=== PATIENT | female | born 1945 | race Caucasian/White ===

== ENCOUNTER → 2018-03-22 | Outpatient (CLI) | payer OTHER, BC ==
[~2018-03-22] MED LIST: AFLURIA 2045 MCG/0.4; ALDACTONE25 MG PO; ASPIR 8181 MG PO; ATENOLOL 100MG100 MG PO; ATENOLOL 50 MG50 M1; CARDIZEM CD180 MG PO; DEMADEX20 MG PO; KEPPRA 500 MG500 M1; KEPPRA 500 MG500 M1 PO; LASIX 40 MG TAB40 M1 PO; LEVOTHYROXIN0.112 M1 PO; LIVALO1 MG PO; MECLIZINE HCL25 M1 PO; MEDROL DOSPAK21 TA1 PO; NAMENDA 10 MG T10 MG; NAMENDA 5 MG TAB5 M1 PO; NEXIUM40 MG; NEXIUM40 MG PO; OXYBUTYNIN; OXYBUTYNIN 5 MG5 M1 PO; PACERONE 200 M200 MG PO; PLAVIX 75 MG TA75 M1 PO; PNEUMOVAX25 MCG/0.5; POTASSIUM20 PO; PRADAXA150 MG PO; REQUIP; REQUIP 1 MG TABL1 M1 PO; TENORMIN50 MG PO; ZOLOFT50 MG PO
== END ==
LOC: ULTRA 12:05
DX: M79.89 Other specified soft tissue disorders (principal); M79.605 Pain in left leg; R60.0 Localized edema

== ENCOUNTER → 2018-05-14 | Outpatient (CLI) | payer OTHER, BC | LOC: RAD 14:19 | DX: J98.11 Atelectasis (principal); M25.562 Pain in left knee ==

== ENCOUNTER → 2018-09-27 | Outpatient (CLI) | payer OTHER, BC ==
[~2018-09-27] MED LIST changes: +CARDIZEM CD 18180 M3 PO; +COZAAR 25 MG TA25 M1 PO; +COZAAR 25 MG TA25 M2 PO; +DICLO GEL1 EACH TRANSDERM; +FEOSOL325 M1 PO; +HUMALOG100 UNIT/1 SUBQ; +LANTUS100 UNIT/M SUBQ; +TENORMIN25 MG PO; +TYLENOL EXTRA500 MG PO; +VIMPAT100 MG PO; +ZOCOR40 MG PO
[2018-09-27 09:31] LABS: HEMATOCRIT 25.9 % (37.0-47.0); HEMOGLOBIN 8.2 gm/dL (12.0-15.0); MCH 23.4 pg (26.0-34.0); MCHC 31.7 g/dL (28.0-37.0); MCV 73.7 fL (80.0-100.0); RBC 3.51 mil/uL (4.20-5.00); RDW 18.8 % (10.5-14.5); WBC 5.8 thou/uL (4.0-11.0)
[2018-09-27 09:44] LABS: CALCIUM 8.8 mg/dL (8.5-10.1); CREATININE 0.9 mg/dL (0.6-1.0); POTASSIUM 3.6 mmol/L (3.5-5.1)
--- NOTE | 2018-09-27 12:36 | EKG ---
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 : 1945 Requested By: Chester Leon Order Number: [id number] MD: Jacky Torrez Measurements Intervals [place] Rate: 112 P: [place]: QRS: -35 QRSD: 113 T: 44 QT: 384 QTc: 525 Interpretive Statements Atrial fibrillation Borderline IVCD with LAD Low voltage, extremity leads Abnormal R-wave progression, late transition Prolonged QT interval No previous ECGs available for comparison Electronically Signed On 09-27-2018 12:36:22 CDT by Jacky Torrez [email or web address] ��������������������������������������������� <ELECTRONICALLY SIGNED> ���������������������������������������� By: Jacky Torrez MD, [facility] ��������������������������������������������� 09/27/18 1236 Jacky Torrez MD, [facility] /EPI
--- NOTE | 2018-09-28 18:07 | PATH ---
[facility] [address] [place] [address] PATHOLOGY RPT PROCEDURE Name: MARGOT RUIZ Room #: REG [facility] M..#: [id number] ������������������ Admission: 09/27/18 ������������������ Date of : 43 Discharge: Report #: [id number] Path Case #: [id number] [facility] Accession Number: [id number] . 01 Material submitted: . PART A: stomach - BX OF GASTRIC ULCER PART B: colon - POLYP AT TRANSVERSE COLON. Modifiers: transverse PART C: cecum - POLYP AT CECUM X2 PART D: colon - POLYP AT ASCENDING COLON. Modifiers: ascending . 01 Clinical history: . Anemia . 02 Diagnosis: A. Gastric mucosa, gastric ulcer, endoscopic biopsy: - Mild reactive gastropathy. - Negative for intestinal metaplasia or atrophy. - Negative for Helicobacter pylori (properly controlled immunohistochemical stain performed). . B. Polyp, transverse colon, endoscopic biopsy: - Tubular adenoma. - Negative for high-grade dysplasia. . C. Polyp x2, cecum, endoscopic biopsy: - All fragments showing tubular adenoma. - Negative for high-grade dysplasia within any of the fragments. . D. Polyp, at ascending colon, endoscopic biopsy: - Tubular adenoma. - Negative for high-grade dysplasia. (IUV:alison; 09/28/2018) QMS/09/28/2018 . 02 Electronically signed: . Luna Pruitt MD, Pathologist NPI- [id number] . 01 Gross description: . A. Received in formalin labeled "Margot Ruiz, BX of gastric ulcer," are 5 segments of martel soft tissue measuring 1.5 x 0.8 x 0.2 cm in aggregate dimensions and ranging from 0.3 to 0.6 cm in maximum dimension. The specimen is submitted entirely in cassette A1. . B. Received in formalin labeled "Margot Ruiz, polyp at transverse colon," is a single segment of martel soft tissue measuring 0.3 cm in maximum dimension. The specimen is entirely submitted in [place] [address] PATHOLOGY RPT PROCEDURE Name: MARGOT RUIZ Room #: REG Jensen Ortez.#: [id number] ������������������ Admission: 09/27/18 ������������������ Date of : 43 Discharge: Report #: [id number] Path Case #: [id number] . C. Received in formalin labeled "Margot Ruiz, polyp at cecum," and additionally labeled on the requisition as "x2," is a 0.8 x 0.4 x 0.4 cm polypoid piece of martel soft tissue. The margin is inked and the tissue is sectioned perpendicular to the margin and submitted entirely in cassette C1. Additionally received in the same container are 3 segments of martel soft tissue measuring 0.8 x 0.7 x 0.2 cm in aggregate dimensions and ranging from 0.2 to 0.3 cm in maximum dimensions. The specimen is submitted entirely in cassette C2. . D. Received in formalin labeled "Joseph Margot, polyp at ascending colon," is a single segment of martel soft tissue measuring 0.6 cm in maximum dimension. The specimen is entirely submitted in cassette D1. (TSD; 09/27/2018) TOB/TOB . 02 Pathologist provided ICD-10: K31.9, D12.3, D12.0, D12.2 . 02 CPT . 772819, 139496, 788711, 068057, R71655 Specimen Comment: A courtesy copy of this report has been sent to Specimen Comment: [phone], . Specimen Comment: Report sent to / DR REYES Performed at: [address], [place], [place] [id number] MD Andrew Gomes MD Phone: [phone] Performed at: [address] [id number] MD Luna Pruitt MD Phone: [phone]
== END | disposition home or self-care (01) ==
LOC: GI 07:33
PROVIDERS: Specialist
DX: D12.0 Benign neoplasm of cecum (principal); D12.2 Benign neoplasm of ascending colon; D12.3 Benign neoplasm of transverse colon; K57.30 Diverticulosis of large intestine without perforation or abscess without bleeding; K31.9 Disease of stomach and duodenum, unspecified; K44.9 Diaphragmatic hernia without obstruction or gangrene; K25.9 Gastric ulcer, unspecified as acute or chronic, without hemorrhage or perforation; K21.0 Gastro-esophageal reflux disease with esophagitis; I10 Essential (primary) hypertension; I25.2 Old myocardial infarction; I48.91 Unspecified atrial fibrillation; E03.9 Hypothyroidism, unspecified; M19.90 Unspecified osteoarthritis, unspecified site; Z87.01 Personal history of pneumonia (recurrent); Z86.73 Personal history of transient ischemic attack (TIA), and cerebral infarction without residual deficits; Z98.890 Other specified postprocedural states; Z88.0 Allergy status to penicillin; Z88.2 Allergy status to sulfonamides; Z88.8 Allergy status to other drugs, medicaments and biological substances; Z79.01 Long term (current) use of anticoagulants; Z79.899 Other long term (current) drug therapy
CPT/HCPCS: 62110; 62900

== ENCOUNTER 2018-10-13 16:24 | Emergency (ER) | payer OTHER, BC ==
[~2018-10-13] VITALS: Ht 157.5 cm; Wt 99.8 kg
[~2018-10-13 16:24] MED LIST changes: -CARDIZEM CD 18180 M3 PO; -COZAAR 25 MG TA25 M1 PO; -COZAAR 25 MG TA25 M2 PO; -DICLO GEL1 EACH TRANSDERM; -FEOSOL325 M1 PO; -HUMALOG100 UNIT/1 SUBQ; -LANTUS100 UNIT/M SUBQ; -TENORMIN25 MG PO; -TYLENOL EXTRA500 MG PO; -VIMPAT100 MG PO; -ZOCOR40 MG PO
[2018-10-13 16:58] LABS: HEMATOCRIT 34.3 % (37.0-47.0); HEMOGLOBIN 10.5 gm/dL (12.0-15.0); MCH 25.5 pg (26.0-34.0); MCHC 30.6 g/dL (28.0-37.0); MCV 83.5 fL (80.0-100.0); PLATELET COUNT 202 thou/uL (150-400); RBC 4.11 mil/uL (4.20-5.00); RDW 29.8 % (10.5-14.5); WBC 6.4 thou/uL (4.0-11.0)
[2018-10-13 17:03] LABS: ANION GAP 10 mmol/L (7-16); BUN 25 mg/dL (7-18); CALCIUM 8.9 mg/dL (8.5-10.1); CHLORIDE 106 mmol/L (98-107); CO2 27 mmol/L (21-32); GLUCOSE 127 mg/dL (74-106); POTASSIUM 3.9 mmol/L (3.5-5.1); SODIUM 143 mmol/L (136-145)
[2018-10-13 17:13] LABS: ALBUMIN 3.4 g/dL (3.4-5.0); SGOT 21 U/L (15-37); SGPT 29 U/L (30-65); TOTAL BILIRUBIN 0.4 mg/dL (<0.1-1.0); TOTAL PROTEIN 6.6 g/dL (6.4-8.2); TROPONIN-I <0.06 ng/mL (<0.06)
[2018-10-13] MEDS ORDERED: TENORMIN25 MG PO (17:27)
[2018-10-13] MEDS ORDERED: COZAAR 25 MG TA25 M2 PO (17:28)
[2018-10-13 17:29] LABS: ABSOLUTE NEUTROPHILS 5.2 thou/uL (1.4-8.2); ANISOCYTOSIS 1+
[2018-10-13] MEDS ORDERED: ZOCOR40 MG PO (17:29)
[2018-10-13] MEDS ORDERED: VIMPAT100 MG PO (17:29)
[2018-10-13] MEDS ORDERED: HUMALOG100 UNIT/1 SUBQ (17:33)
[2018-10-13] MEDS ORDERED: LANTUS100 UNIT/M SUBQ (17:33)
[2018-10-13] MEDS ORDERED: TYLENOL EXTRA500 MG PO (17:35)
[2018-10-13 18:24] VITALS: BP 129/65
--- NOTE | 2018-10-13 23:34 | EKG ---
[place] [address] [address] 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1945 Requested By: Marge Melendez Order Number: [id number] MD: Asif Millard Measurements Intervals [place] Rate: 79 P: [place]: QRS: -39 QRSD: 121 T: 11 QT: 400 QTc: 459 Interpretive Statements Atrial flutter Nonspecific IVCD with LAD Compared to ECG 09/27/2018 08:34:37 Atrial fibrillation no longer present Prolonged QT interval no longer present Electronically Signed On 10-13-2018 23:34:05 CDT by Asif Millard [email or web address] ��������������������������������������������� <ELECTRONICALLY SIGNED> ���������������������������������������� By: Asif Millard MD ��������������������������������������������� 10/13/18 2334 29 29 Asif Millard MD /AMIRA
[2018-10-14] MEDS ORDERED: DEMADEX20 MG PO ×2 (12:57→12:58)
[2018-10-14] MEDS ORDERED: FEOSOL325 M1 PO (13:00)
== END 2018-10-13 18:24 | disposition left against medical advice (07) ==
LOC: ER 16:24
PROVIDERS: Physician Assistant
DX: I11.0 Hypertensive heart disease with heart failure (principal); I50.9 Heart failure, unspecified; D64.9 Anemia, unspecified; I48.91 Unspecified atrial fibrillation; M81.0 Age-related osteoporosis without current pathological fracture; E78.5 Hyperlipidemia, unspecified; E03.9 Hypothyroidism, unspecified; M19.90 Unspecified osteoarthritis, unspecified site; K21.9 Gastro-esophageal reflux disease without esophagitis; G25.81 Restless legs syndrome; Z86.73 Personal history of transient ischemic attack (TIA), and cerebral infarction without residual deficits; Z90.89 Acquired absence of other organs

== ENCOUNTER 2018-10-14 11:06 | Inpatient (IN) | payer OTHER, BC ==
[~2018-10-14] VITALS: Ht 157.5 cm; Wt 114.6 kg
[~2018-10-14 11:06] MED LIST changes: +COZAAR 25 MG TA25 M2 PO; +HUMALOG100 UNIT/1 SUBQ; +LANTUS100 UNIT/M SUBQ; +TENORMIN25 MG PO; +TYLENOL EXTRA500 MG PO; +VIMPAT100 MG PO; +ZOCOR40 MG PO
[2018-10-14] MEDS ORDERED: DEMADEX20 MG PO ×2 (12:57→12:58)
[2018-10-14] MEDS ORDERED: FEOSOL325 M1 PO (13:00)
[2018-10-14 13:01] VITALS: BP 110/53
[2018-10-14 13:05] LABS: ABSOLUTE NEUTROPHILS 4.5 thou/uL (1.4-8.2); BASOPHILS 0.6 % (0.0-2.0); EOSINOPHILS 2.7 % (0.0-3.0); HEMATOCRIT 35.7 % (37.0-47.0); HEMOGLOBIN 10.9 gm/dL (12.0-15.0); LYMPHOCYTES 10.2 % (24.0-44.0); MCH 25.6 pg (26.0-34.0); MCHC 30.5 g/dL (28.0-37.0); MCV 83.8 fL (80.0-100.0); PLATELET COUNT 214 thou/uL (150-400); POLYS 79.5 % (36.0-66.0); RBC 4.26 mil/uL (4.20-5.00); WBC 5.6 thou/uL (4.0-11.0)
[2018-10-14 13:12] LABS: CALCIUM 8.9 mg/dL (8.5-10.1); CREATININE 1.2 mg/dL (0.6-1.0); POTASSIUM 4.1 mmol/L (3.5-5.1)
[2018-10-14 14:15] LABS: ANISOCYTOSIS 2+; POLYCHROMASIA OCCASIONAL
[2018-10-14 14:17] LABS: HYPOCHROMASIA 1+
--- NOTE | 2018-10-14 14:34 | 2DMMODE ---
[facility] [address] [place] [address] 2 D/M-MODE ECHOCARDIOGRAM Name: TOSHIAMARGOT MCKEON Room #: 211-P ADM IN M.R.#: [id number] ������������� Admission: 10/14/18 ������������� Attend Phys: Deandre Hirsch, Discharge: ��� ������������� ��� Date of : 43 Date of Service: 10/14/18 1433 �� Report #: [id number] �������� ��������������������������������������������[id number] THIS REPORT FOR: //name// APPROVED REPORT Study performed: 10/14/2018 12:56:33 EXAM: Comprehensive 2D, Doppler, and color-flow Echocardiogram Patient Location: Bedside Room #: 211 Status: routine BSA: 1.95 HR: 56 bpm BP: 129/65 mmHg Rhythm: Atrial Fibrillation Other Information Study Quality: Adequate Indications Congestive Heart Failure Diabetes Dyspnea Cardiomyopathy Hypertension/HDD 2D Dimensions IVC: 24.00 mm Tricuspid Valve TR Peak Manny.: 2.93 m/s TR Peak Gr.: 34.33 mmHg PA Pressure: 45.00 mmHg Left Ventricle The left ventricle is normal size. There is global hypokinesis of the left ventricle. There is normal left ventricular wall thickness. Left ventricular systolic function is mildly decreased. LVEF is 40-45%. This study is not technically sufficient to allow evaluation of the LV diastolic function due to atrial fibrillation. Right Ventricle The right ventricle is normal size. The right ventricular systolic function is normal. [facility] [address] [address] 2 D/M-MODE ECHOCARDIOGRAM Name: MARGOT POPE Room #: 211-P ADM IN M.R.#: [id number] ������������� Admission: 10/14/18 ������������� Attend Phys: Deandre Hirsch, Discharge: ��� ������������� ��� Date of : 43 Date of Service: 10/14/18 1433 �� Report #: [id number] �������� ��������������������������������������������[id number] Atria Left atrium is dilated. Right atrium is dilated. Aortic Valve The aortic valve is normal in structure. Mild aortic regurgitation. Mitral Valve The mitral valve is normal in structure. Mild to moderate mitral regurgitation. Tricuspid Valve The tricuspid valve is normal in structure. There is mild to moderate tricuspid regurgitation. Estimated PAP 45 mmHg. There is moderate pulmonary hypertension. Pulmonic Valve The pulmonary valve is normal in structure. Great Vessels The aortic root is normal in size. IVC is dilated and collapses <50% with inspiration. Pericardium Trace pericardial effusion. <Conclusion> The left ventricle is normal size. There is global hypokinesis of the left ventricle. LVEF is 40-45%. This study is not technically sufficient to allow evaluation of the LV diastolic function due to atrial fibrillation. The right ventricle is normal size. Left atrium is dilated. Right atrium is dilated. Mild aortic regurgitation. Mild to moderate mitral regurgitation. There is mild to moderate tricuspid regurgitation. Estimated PAP 45 mmHg. There is moderate pulmonary hypertension. Trace pericardial effusion. ��������������������������������������������� <ELECTRONICALLY SIGNED> ���������������������������������������� By: Deandre Hirsch MD, FAC ��������������������������������������������� 10/14/18 1433 1433 1433 Deandre Hirsch MD, FAC /INF
[2018-10-14 15:42] VITALS: BP 115/37
--- NOTE | 2018-10-14 16:58 | NUR ---
PT DIRECT ADMIT FROM DOCTORS OFFICE. PT ORIENTED TO ROOM AND BEDSPACE - ASSESSMENT CHARTED - MEDS PER MAY - IV STARTED IN [facility]. PT UP WITH ASSITANCE TO BATHROOM - PT IS FALL RISK. FALL RISK PRECAUTIONS IN PLACE. KELSEY DIET AND FLUIDS. CO'S OF PAIN IN LEFT RIB AREA DUE TO COUGHING. NO CO'S AT THE PRESENT TIME.
[2018-10-15] VITALS (7 sets, daily range): BP systolic 123–140; BP diastolic 46–76
[2018-10-15] MEDS ORDERED: COZAAR 25 MG TA25 M1 PO ×2 (04:58→05:19)
[2018-10-15] MEDS ORDERED: DICLO GEL1 EACH TRANSDERM (05:22)
[2018-10-15] MEDS ORDERED: CARDIZEM CD 18180 M3 PO (05:28)
--- NOTE | 2018-10-15 05:51 | NUR ---
RECEIVED PT'S CARE AT 1929; PT. SITTING AT THE BED SIDE OF THE BED; AXO4; DURING ASSESSMENT C/O PAIN OVER L. SIDE; ST. "I DO NOT WANT TO TAKE ANYTHING FOR PAIN"; REQUESTED HOME HS MEDICATION; PHYSICIAN NOTIFIED; ORDERS RECEIVED; ST. WANTS TO TAKE HOME MEDICATIONS WHILE IN THE HOSPITAL; EXPLAINED SOMETIMES MEDICATION MIGHT BE HOLD; REQUEST EXPLANATION FROM DR. CASTRO THE REASON TO HOLD MEDICATION; INFORM WILL PASS ON REPORT & MIGHT ASK TO DR. CASTRO ON THE MORNING; ST. UNDERSTANDING; HOME MEDICATION LIST UPDATE; COPY ON CHART; ASK THE REASON BEHIND ANTIBIOTICS HAVE NOT BEING STARTED; PER REPORT DR. DOYLE AWARE; INFORM DR. DOYLE AWARE OF IT; ST. UNDERSTANDING; ABLE TO REST THROUGH THE NIGHT WITH EYES CLOSE; CALLED APROPIATELY; ASSESSMENT CHARGED; FOLLOWING POC; MONITORING; WILL PASS ON REPORT.
[2018-10-15 08:09] LABS: CALCIUM 9.1 mg/dL (8.5-10.1); POTASSIUM 3.5 mmol/L (3.5-5.1)
--- NOTE | 2018-10-15 09:23 | EKG ---
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1945 Requested By: Deandre Hirsch Order Number: [id number] MD: Jacky Torrez Measurements Intervals [place] Rate: 74 P: [place]: QRS: -18 QRSD: 129 T: 11 QT: 453 QTc: 503 Interpretive Statements Atrial fibrillation IVCD, consider atypical LBBB Compared to ECG 10/13/2018 16:30:32 No significant change was found Electronically Signed On 10-15-2018 9:23:28 CDT by Jacky Torrez [email or web address] ��������������������������������������������� <ELECTRONICALLY SIGNED> ���������������������������������������� By: Jacky Torrez MD, [facility] ��������������������������������������������� 10/15/18 0923 Jacky Torrez MD, [facility] /EPI
--- NOTE | 2018-10-15 12:03 | NUR ---
Nutrition: Pt assessed d/t moderate risk per RD screening per BMI >40 (46.2 at present). Nutrition education provided in detail as pt here w/ CHF too. Hx: chronic CHF, HTN, DM (on insulin). Reports being on vacation w/ spouse the last few weeks; eating out for every meal. Pt now understands how quickly CHF symptoms can be exacerbated "by going off diet." States she learned her lesson. Shared tips to keep weight/fluid retention down, reviewed low sodium food choices, dining out tips, and encouraged more eating in/home cooked meals. BGs staying well controlled, 91-113 mg/dl per 10/14, 119 mg/dl today. Likely to d/c home tomorrow per chart. Low nutrition risk.
--- NOTE | 2018-10-15 17:08 | NUR ---
ASSESSMENT CHARTED - MEDS PER MAR - PT WITH NO CO'S OF PAIN OR NASUEA. KELSEY DIET AND FLUIDS. NO COVERAGE REQUIRED FOR ACCUCHEECKS THIS SHIFT - AMBULATING WITH STBY ASSIST TO THE BATHROOM. PT WITH CTA - PE PROTOCOL COMPLETED THIS AFTERNOON. IV 20 GAUGE STARTED X 1 [address] [facility] FOR [address]. UP TO VISIT THIS AM. NO CO'S AT THE PRESENT TIME.
--- NOTE | 2018-10-16 04:04 | NUR ---
RECEIVED PT'S CARE AROUND 1929; PT. SITTING ON THE BED SIDE; AOX4; RELATIVE AT THE BED SIDE; DURING ASSESSMENT PT. C/O PAIN OVER L. SIDE FLANK; 05/02; INTERMITTENT; ST. ABLE TO TOLERATE PAIN; NOTIFIED ABOUT HS MEDICATION & DOSAGES; ST. UNDERSTANDING; HS MEDICATION GIVEN; AT 2129 NEW IV ANTIBIOTIC ON EMAR; MEDICATION GIVEN; PT. COUGHING; STRONG EFFORT; C/O SOB & FLUSHING OVER FACE OVER A BRIEF PERIOD DUE TO COUGHING; ASSISSTED & EDUCATED ABOUT TAKING DEEP BREATH & SHAPPING LIPS BLOWING THROUGH A STROW; BREATHING IMPROVED; O2 SAT 98% ON RA; PER ORDER H1B1/RVP CULTURE TAKEN; SENT TO LAB; ABLE TO REST AFTER MIDNIGHT WITH EYES CLOSED; ASSESSMENT CHARGED; FOLLOWING POC; MONITORING; WILL PASS ON REPORT;
[2018-10-16 05:25] VITALS: BP 149/78
[2018-10-16 05:32] LABS: CALCIUM 9.1 mg/dL (8.5-10.1); POTASSIUM 3.9 mmol/L (3.5-5.1)
[2018-10-16 07:05] VITALS: BP 137/81
--- NOTE | 2018-10-16 08:54 | NUR ---
ASSUMED CARE OF PT APPROX 0715, A&0X4, AMB SLOW AND STEADY, SEE INDIVIDUAL INTERVENTIONS FOR ASSESSMENTS, ENCOURAGED TO USE CALL LIGHT FOR ANY NEEDS
[2018-10-16 10:58] VITALS: BP 137/81
== END 2018-10-16 11:55 | disposition home or self-care (01) | DRG 291 ==
LOC: 2N 11:06
PROVIDERS: Nurse Practitioner Adult Health; ADMIT Internal Medicine Cardiovascular Disease
DX: I11.0 Hypertensive heart disease with heart failure (principal); J18.9 Pneumonia, unspecified organism; I50.23 Acute on chronic systolic (congestive) heart failure; I42.9 Cardiomyopathy, unspecified; I48.2 Chronic atrial fibrillation; E78.5 Hyperlipidemia, unspecified; D64.9 Anemia, unspecified; E11.9 Type 2 diabetes mellitus without complications; I08.3 Combined rheumatic disorders of mitral, aortic and tricuspid valves; I27.20 Pulmonary hypertension, unspecified; E03.9 Hypothyroidism, unspecified; Z88.8 Allergy status to other drugs, medicaments and biological substances; Z88.0 Allergy status to penicillin; Z88.2 Allergy status to sulfonamides; Z91.19 Patient's noncompliance with other medical treatment and regimen
CPT/HCPCS: 10081

== ENCOUNTER → 2018-12-27 | Outpatient (CLI) | payer OTHER, BC ==
[~2018-12-27] MED LIST changes: +CARDIZEM CD 18180 M3 PO; +COZAAR 25 MG TA25 M1 PO; +DICLO GEL1 EACH TRANSDERM; +FEOSOL325 M1 PO; +OMEPRAZOLE40 MG PO
== END | disposition home or self-care (01) ==
LOC: GI 08:09
DX: K25.9 Gastric ulcer, unspecified as acute or chronic, without hemorrhage or perforation (principal); K31.89 Other diseases of stomach and duodenum; K44.9 Diaphragmatic hernia without obstruction or gangrene; I11.0 Hypertensive heart disease with heart failure; I50.9 Heart failure, unspecified; E78.00 Pure hypercholesterolemia, unspecified; I25.10 Atherosclerotic heart disease of native coronary artery without angina pectoris; E11.9 Type 2 diabetes mellitus without complications; E03.9 Hypothyroidism, unspecified; D64.9 Anemia, unspecified; I48.91 Unspecified atrial fibrillation; I48.92 Unspecified atrial flutter; Z87.19 Personal history of other diseases of the digestive system; Z98.41 Cataract extraction status, right eye; Z86.010 Personal history of colon polyps; Z79.01 Long term (current) use of anticoagulants; Z98.42 Cataract extraction status, left eye; Z79.899 Other long term (current) drug therapy; Z88.2 Allergy status to sulfonamides; Z88.0 Allergy status to penicillin
CPT/HCPCS: 62110; 62900

== ENCOUNTER → 2019-04-22 | Outpatient (CLI) | payer OTHER, BC | LOC: SJCVCIMAG 10:22 → RAD 12:49 | DX: I48.21 Permanent atrial fibrillation (principal); I10 Essential (primary) hypertension; I25.10 Atherosclerotic heart disease of native coronary artery without angina pectoris; I25.5 Ischemic cardiomyopathy; E78.5 Hyperlipidemia, unspecified; M19.90 Unspecified osteoarthritis, unspecified site; Z90.09 Acquired absence of other part of head and neck; Z87.891 Personal history of nicotine dependence; Z79.84 Long term (current) use of oral hypoglycemic drugs; Z79.4 Long term (current) use of insulin ==

== ENCOUNTER → 2019-05-13 | Outpatient (CLI) | payer OTHER, BC | LOC: SJCVC 12:57 | DX: E11.9 Type 2 diabetes mellitus without complications (principal); I87.2 Venous insufficiency (chronic) (peripheral); G40.909 Epilepsy, unspecified, not intractable, without status epilepticus; K21.9 Gastro-esophageal reflux disease without esophagitis; I48.21 Permanent atrial fibrillation; I25.10 Atherosclerotic heart disease of native coronary artery without angina pectoris; M19.90 Unspecified osteoarthritis, unspecified site; I25.5 Ischemic cardiomyopathy; D68.59 Other primary thrombophilia; E78.00 Pure hypercholesterolemia, unspecified; Z79.4 Long term (current) use of insulin; Z86.73 Personal history of transient ischemic attack (TIA), and cerebral infarction without residual deficits; Z79.899 Other long term (current) drug therapy ==

== ENCOUNTER → 2019-06-01 | Outpatient (CLI) | payer OTHER, BC | LOC: SJCVC 11:06 | DX: I48.21 Permanent atrial fibrillation (principal); R94.31 Abnormal electrocardiogram [ECG] [EKG]; I25.5 Ischemic cardiomyopathy; I11.0 Hypertensive heart disease with heart failure; I50.23 Acute on chronic systolic (congestive) heart failure; I34.0 Nonrheumatic mitral (valve) insufficiency; I25.10 Atherosclerotic heart disease of native coronary artery without angina pectoris; E11.9 Type 2 diabetes mellitus without complications; Z79.4 Long term (current) use of insulin; Z79.82 Long term (current) use of aspirin; Z79.899 Other long term (current) drug therapy ==

== ENCOUNTER 2019-07-17 14:30 | Emergency (ER) | payer OTHER, BC ==
[~2019-07-17] VITALS: Ht 157.5 cm; Wt 106.6 kg
[~2019-07-17 14:30] MED LIST changes: +CARDIZEM CD120 MG PO; -CARDIZEM CD180 MG PO
[2019-07-17] MEDS ORDERED: ASA81BEC PO (14:47)
[2019-07-17] MEDS ORDERED: GUAIFENESIN400 MG PO (14:48)
[2019-07-17 16:02] LABS: ABSOLUTE NEUTROPHILS 4.8 thou/uL (1.4-8.2); BASOPHILS 0.9 % (0.0-2.0); EOSINOPHILS 1.2 % (0.0-3.0); HEMATOCRIT 31.7 % (37.0-47.0); HEMOGLOBIN 10.4 gm/dL (12.0-15.0); LYMPHOCYTES 11.5 % (24.0-44.0); MCH 27.6 pg (26.0-34.0); MCHC 32.7 g/dL (28.0-37.0); MCV 84.4 fL (80.0-100.0); MONOCYTES 9.2 % (1.0-8.0); PLATELET COUNT 192 thou/uL (150-400); POLYS 77.2 % (36.0-66.0); RBC 3.76 mil/uL (4.20-5.00); RDW 16.5 % (10.5-14.5); WBC 6.3 thou/uL (4.0-11.0)
[2019-07-17 16:06] LABS: CALCIUM 8.7 mg/dL (8.5-10.1); POTASSIUM 3.6 mmol/L (3.5-5.1)
[2019-07-17] MEDS ORDERED: CLEOCIN HCL300 MG PO ×2 (16:17→16:39)
[2019-07-17] MEDS ORDERED: PROBIOTIC1 EAC7 PO ×2 (16:17→16:39)
[2019-07-17 17:00] VITALS: BP 122/50
== END 2019-07-17 17:00 | disposition home or self-care (01) ==
LOC: ER 14:30
PROVIDERS: Nurse Practitioner Family
DX: L03.011 Cellulitis of right finger (principal); E11.9 Type 2 diabetes mellitus without complications; M19.90 Unspecified osteoarthritis, unspecified site; I10 Essential (primary) hypertension; E78.5 Hyperlipidemia, unspecified; E03.9 Hypothyroidism, unspecified; K21.9 Gastro-esophageal reflux disease without esophagitis; F17.210 Nicotine dependence, cigarettes, uncomplicated; Z86.73 Personal history of transient ischemic attack (TIA), and cerebral infarction without residual deficits; Z79.899 Other long term (current) drug therapy; Z79.4 Long term (current) use of insulin; Z79.82 Long term (current) use of aspirin; Z88.1 Allergy status to other antibiotic agents; Z88.2 Allergy status to sulfonamides; Z88.6 Allergy status to analgesic agent; Z88.8 Allergy status to other drugs, medicaments and biological substances

== ENCOUNTER → 2019-09-12 | Outpatient (CLI) | payer OTHER, BC ==
[~2019-09-12] MED LIST changes: +ASA81BEC PO; +CLEOCIN HCL300 MG PO; +GUAIFENESIN400 MG PO; +PROBIOTIC1 EAC7 PO
== END ==
LOC: SJCVC 14:37
PROVIDERS: ATTEND Internal Medicine Cardiovascular Disease
DX: R94.31 Abnormal electrocardiogram [ECG] [EKG] (principal); I48.21 Permanent atrial fibrillation; I25.10 Atherosclerotic heart disease of native coronary artery without angina pectoris; I87.2 Venous insufficiency (chronic) (peripheral); E11.9 Type 2 diabetes mellitus without complications; G45.9 Transient cerebral ischemic attack, unspecified; I11.0 Hypertensive heart disease with heart failure; I50.23 Acute on chronic systolic (congestive) heart failure; D68.59 Other primary thrombophilia; I25.5 Ischemic cardiomyopathy; E78.00 Pure hypercholesterolemia, unspecified; Z79.4 Long term (current) use of insulin; Z79.899 Other long term (current) drug therapy; Z87.891 Personal history of nicotine dependence

== ENCOUNTER → 2019-10-05 | Outpatient (CLI) | payer OTHER, BC ==
[~2019-10-05] MED LIST changes: +ALLOPURINOL 10100 M3 PO; +SIMVASTATIN40 MG PO; +VIMPAT150 MG PO
== END ==
LOC: SJCVCIMAG 09:18
PROVIDERS: ATTEND Internal Medicine Cardiovascular Disease
DX: Z01.818 Encounter for other preprocedural examination (principal); I48.21 Permanent atrial fibrillation; I49.3 Ventricular premature depolarization; I25.5 Ischemic cardiomyopathy; I25.10 Atherosclerotic heart disease of native coronary artery without angina pectoris; E78.5 Hyperlipidemia, unspecified; E11.9 Type 2 diabetes mellitus without complications; I11.0 Hypertensive heart disease with heart failure; I50.9 Heart failure, unspecified; Z79.4 Long term (current) use of insulin; Z78.0 Asymptomatic menopausal state; Z79.899 Other long term (current) drug therapy; Z87.891 Personal history of nicotine dependence

== ENCOUNTER → 2019-10-07 | Outpatient (CLI) | payer OTHER, BC | LOC: LAB 10:40 | PROVIDERS: ATTEND Student in an Organized Health Care Education/Training Program | DX: Z01.812 Encounter for preprocedural laboratory examination (principal); Z11.59 Encounter for screening for other viral diseases ==

== ENCOUNTER → 2019-10-10 | Outpatient (CLI) | payer OTHER, BC ==
[~2019-10-10] VITALS: Ht 157.5 cm; Wt 106.6 kg
--- NOTE | 2019-10-11 14:07 | PATH ---
[facility] [address] [place] [address] PATHOLOGY RPT PROCEDURE Name: MARGOT RUIZ Room #: REG [facility] MMeghana.#: [id number] Admission: 10/10/19 Date of : 43 Discharge: Report #: [id number] Path Case #: [id number] [facility] Accession Number: [id number] . 01 Material submitted: . hepatic flexure - HEPATIC FLEXURE POLYP . 01 Clinical history: . Pre-op diagnosis: History of polyps Post-op diagnosis: Polypectomy History of tubular adenoma . 02 Diagnosis: Polypoid, hepatic flexure polyp, endoscopic biopsy: - Tubular adenoma. - Negative for high-grade dysplasia. (IUV:alison 10/11/2019) QMS 10/11/2019 1058 Local . 02 Electronically signed: . Luna Pruitt MD, Pathologist NPI- [id number] . 01 Gross description: . The specimen is received in formalin, labeled "Margot Ruiz, hepatic flexure polyp". Received is a segment of pale martel soft tissue measuring 1.2 cm in maximum dimensions. The specimen is submitted entirely in cassette A1. (CAA; 10/10/2019) QAC/QA 10/11/2019 1057 Local . 02 Pathologist provided ICD-10: D12.3 . 02 CPT . 529052 Specimen Comment: A courtesy copy of this report has been sent to [phone] Specimen Comment: [phone] Specimen Comment: Report sent to / DR REYES Specimen Comment: A duplicate report has been generated due to demographic updates. Performed at: [address] [id number] MD Andrew Gomes MD Phone: [phone] Performed at: [address] [address] PATHOLOGY RPT PROCEDURE Name: MARGOT RUIZ Room #: REG CLI [facility].#: [id number] Admission: 10/10/19 Date of : 43 Discharge: Report #: [id number] Path Case #: [id number] [address] [id number] MD Luna Pruitt MD Phone: [phone]
== END | disposition home or self-care (01) ==
LOC: GI 07:37
PROVIDERS: ATTEND Internal Medicine Gastroenterology
DX: Z09 Encounter for follow-up examination after completed treatment for conditions other than malignant neoplasm (principal); Z86.010 Personal history of colon polyps; D12.3 Benign neoplasm of transverse colon; I10 Essential (primary) hypertension; E11.9 Type 2 diabetes mellitus without complications; E78.5 Hyperlipidemia, unspecified; E03.9 Hypothyroidism, unspecified; M19.90 Unspecified osteoarthritis, unspecified site; K21.9 Gastro-esophageal reflux disease without esophagitis; I48.21 Permanent atrial fibrillation; Z98.890 Other specified postprocedural states; Z79.899 Other long term (current) drug therapy; Z79.4 Long term (current) use of insulin; Z79.01 Long term (current) use of anticoagulants; Z87.891 Personal history of nicotine dependence; Z86.73 Personal history of transient ischemic attack (TIA), and cerebral infarction without residual deficits; Z88.0 Allergy status to penicillin; Z88.2 Allergy status to sulfonamides; Z88.8 Allergy status to other drugs, medicaments and biological substances
CPT/HCPCS: 62110; 62900

== ENCOUNTER → 2020-04-02 | Outpatient (CLI) | payer OTHER, BC | LOC: LAB 11:42 | PROVIDERS: ATTEND Neuromusculoskeletal Medicine & OMM | DX: Z20.822 Contact with and (suspected) exposure to COVID-19 (principal) ==

== ENCOUNTER → 2020-10-04 | Outpatient (CLI) | payer OTHER, BC | LOC: SJCVC 12:53 | PROVIDERS: ATTEND Internal Medicine Cardiovascular Disease | DX: R94.31 Abnormal electrocardiogram [ECG] [EKG] (principal); I45.4 Nonspecific intraventricular block; I25.10 Atherosclerotic heart disease of native coronary artery without angina pectoris; I25.5 Ischemic cardiomyopathy; I48.21 Permanent atrial fibrillation; I10 Essential (primary) hypertension; E11.9 Type 2 diabetes mellitus without complications; I87.2 Venous insufficiency (chronic) (peripheral); Z86.73 Personal history of transient ischemic attack (TIA), and cerebral infarction without residual deficits; Z79.4 Long term (current) use of insulin; G43.909 Migraine, unspecified, not intractable, without status migrainosus; K21.9 Gastro-esophageal reflux disease without esophagitis; E78.5 Hyperlipidemia, unspecified; Z79.899 Other long term (current) drug therapy; Z87.891 Personal history of nicotine dependence; Z72.89 Other problems related to lifestyle; Z88.2 Allergy status to sulfonamides; Z88.0 Allergy status to penicillin; Z88.8 Allergy status to other drugs, medicaments and biological substances; Z88.1 Allergy status to other antibiotic agents ==

== ENCOUNTER → 2020-10-23 | Outpatient (CLI) | payer OTHER, BC | LOC: SJCVCIMAG 06:24 → SJCVC 10:22 | PROVIDERS: ATTEND Internal Medicine Cardiovascular Disease | DX: R94.31 Abnormal electrocardiogram [ECG] [EKG] (principal); I08.3 Combined rheumatic disorders of mitral, aortic and tricuspid valves; I27.20 Pulmonary hypertension, unspecified; I45.4 Nonspecific intraventricular block; I25.10 Atherosclerotic heart disease of native coronary artery without angina pectoris; I25.5 Ischemic cardiomyopathy; I11.0 Hypertensive heart disease with heart failure; I50.23 Acute on chronic systolic (congestive) heart failure; I48.21 Permanent atrial fibrillation; R42 Dizziness and giddiness; I87.2 Venous insufficiency (chronic) (peripheral); E11.9 Type 2 diabetes mellitus without complications; E78.5 Hyperlipidemia, unspecified; Z79.4 Long term (current) use of insulin; Z79.82 Long term (current) use of aspirin; Z79.899 Other long term (current) drug therapy; Z87.891 Personal history of nicotine dependence; Z72.89 Other problems related to lifestyle ==

== ENCOUNTER → 2020-12-06 | Outpatient (CLI) | payer OTHER, BC | LOC: SJCVC 10:20 | PROVIDERS: ATTEND Internal Medicine Cardiovascular Disease | DX: R94.31 Abnormal electrocardiogram [ECG] [EKG] (principal); I49.3 Ventricular premature depolarization; I45.9 Conduction disorder, unspecified; I25.10 Atherosclerotic heart disease of native coronary artery without angina pectoris; I11.0 Hypertensive heart disease with heart failure; I50.23 Acute on chronic systolic (congestive) heart failure; E78.2 Mixed hyperlipidemia; G45.9 Transient cerebral ischemic attack, unspecified; E11.9 Type 2 diabetes mellitus without complications; I48.21 Permanent atrial fibrillation; I34.0 Nonrheumatic mitral (valve) insufficiency; D68.59 Other primary thrombophilia; I38 Endocarditis, valve unspecified; E78.00 Pure hypercholesterolemia, unspecified; I25.5 Ischemic cardiomyopathy; Z86.73 Personal history of transient ischemic attack (TIA), and cerebral infarction without residual deficits; Z79.4 Long term (current) use of insulin; Z79.82 Long term (current) use of aspirin; Z79.899 Other long term (current) drug therapy; Z88.0 Allergy status to penicillin; Z88.8 Allergy status to other drugs, medicaments and biological substances; Z72.89 Other problems related to lifestyle; Z87.891 Personal history of nicotine dependence ==

== ENCOUNTER → 2021-01-23 | Outpatient (CLI) | payer OTHER, BC | LOC: SJCVC 13:13 | PROVIDERS: ATTEND Internal Medicine Cardiovascular Disease | DX: I45.2 Bifascicular block (principal); R94.31 Abnormal electrocardiogram [ECG] [EKG]; I48.21 Permanent atrial fibrillation; I25.10 Atherosclerotic heart disease of native coronary artery without angina pectoris; I10 Essential (primary) hypertension; E78.00 Pure hypercholesterolemia, unspecified; E11.9 Type 2 diabetes mellitus without complications; G45.9 Transient cerebral ischemic attack, unspecified; I87.2 Venous insufficiency (chronic) (peripheral); D68.59 Other primary thrombophilia; I38 Endocarditis, valve unspecified; I25.5 Ischemic cardiomyopathy; I50.23 Acute on chronic systolic (congestive) heart failure; K21.9 Gastro-esophageal reflux disease without esophagitis; E78.5 Hyperlipidemia, unspecified; Z79.4 Long term (current) use of insulin; Z87.891 Personal history of nicotine dependence; Z72.89 Other problems related to lifestyle; Z79.82 Long term (current) use of aspirin; Z79.899 Other long term (current) drug therapy; Z88.0 Allergy status to penicillin; Z88.8 Allergy status to other drugs, medicaments and biological substances; Z88.2 Allergy status to sulfonamides; Z88.1 Allergy status to other antibiotic agents ==

== ENCOUNTER → 2021-02-20 | Outpatient (CLI) | payer OTHER, BC | LOC: RAD 09:08 | PROVIDERS: ATTEND Nurse Practitioner | DX: M19.072 Primary osteoarthritis, left ankle and foot (principal); M77.32 Calcaneal spur, left foot ==